=== PATIENT | male | born 1950 | race Caucasian/White ===

== ENCOUNTER 2016-08-24 22:46 | Emergency (ER) | payer OTHER, MEDICARE ==
[~2016-08-24] VITALS: Ht 188 cm; Wt 81.6 kg
--- NOTE | 2016-08-24 22:57 | ED GENERAL ADULT ---
History of Present Illness General Chief Complaint: Fall Stated Complaint: BIBA +ETOH FALL FROM STAIRS INTO PILE OF DIRT Source: patient, EMS Exam Limitations: confusion, poor historian, intoxication, physical impairment Vital Signs & Intake/Output Vital Signs & Intake/Output Vital Signs Date Time Temp Pulse Resp B/P Pulse O2 O2 Flow FiO2 Ox Delivery Rate 08/25 0020 77 20 109/66 97 Room Air 08/25 0014 95 Room Air 08/24 2311 97.1 86 18 136/76 95 Room Air ED Intake and Output 08/25 0000 08/24 1200 Intake Total Output Total Balance Patient 180 lb Weight Allergies Coded Allergies: NO KNOWN ALLERGIES (09/21/12) Reconcile Medications Aspirin (Ecotrin*) 81 MG TABLET.DR 1 TAB PO DAILY HEART HEALTH (Reported) Lisinopril 5 MG TABLET 1 TAB PO DAILY HEART HEALTH (Reported) Metoprolol Tartrate 25 MG TABLET 1 TAB PO BID HEART HEALTH (Reported) Simvastatin (Simvastatin*) 20 MG TABLET 1 TAB PO QPM HEART HEALTH (Reported) Tiotropium [place] (Spiriva) 18 MCG CAP.W.DEV 1 CAP INH DAILY COPD (Reported) Triage Note: BIBA FROM HOME +ETOH FELL OFF STEPS, ROLLED DOWN EMBANKMENT AND INTO THE STREET. PD WAS DRIVING BY AND SAW PT, ACTIVATED EMS. PT WAS REFUSING ALL CARE BUT HIGHLY INTOXICATED SO WAS BROUGHT TO ED. NOT ON PEER. UPON ARRIVAL PT ATTEMPTING TO REMOVE C-COLLAR. EMS UNABLE TO OBTAIN IV DUE TO UNCOOPERATION Triage Nurses Notes Reviewed? yes Onset: Abrupt Duration: hour(s): Timing: recent history HPI: 08/24/16 11 PM Is a 66-year-old male presents to the emergency department for alcohol intoxication. The patient apparently was seen walking down an embankment and he fell and rolled down a hill. Police were called and he was forced to come to the emergency department for evaluation. The patient is obviously intoxicated. He denies any headache chest pain abdominal pain or any complaints. On physical exam he does not have any cervical spine tenderness. No obvious evidence of trauma. He is acutely intoxicated, abdomen is soft and nontender The onset of the symptoms were abrupt, the duration was just this evening, the severity is significant, as he needed evaluation in the ED. (JONATAN OLIVAREZ DO) Past History Medical History Any Pertinent Medical History? see below for history History of MRSA: No History of VRE: No History of CDIFF: No Surgical History Surgical History: unobtainable Psychosocial History Who do you live with Spouse Services at Home None What is your primary language Dominican Family History Hx Contributory? No (JONATAN OLIVAREZ DO) Review of Systems Review of Systems Constitutional: Reports: no symptoms. EENTM: Reports: no symptoms. Respiratory: Reports: no symptoms. Cardiovascular: Reports: no symptoms. GI: Reports: no symptoms. Genitourinary: Reports: no symptoms. Musculoskeletal: Reports: no symptoms. Skin: Reports: no symptoms. Neurological/Psychological: Reports: see HPI. Hematologic/Endocrine: Reports: no symptoms. (JONATAN OLIVAREZ DO) Physical Exam Physical Exam General Appearance: alert, awake, anxious, moderate distress Head: atraumatic, normal appearance Eyes: Bilateral: normal appearance, PERRL, EOMI. Ears, Nose, Throat: normal ENT inspection Neck: normal inspection, supple, full range of motion, no midline tenderness Respiratory: normal breath sounds, chest non-tender, no respiratory distress Cardiovascular: regular rate/rhythm Peripheral Pulses: 4+ radial (R), 4+ radial (L) Gastrointestinal: non-tender Back: decreased range of motion Extremities: normal inspection, normal range of motion, no edema Neurologic/Psych: awake, alert, INTOXICATED Skin: intact, normal color, warm/dry Core Measures ACS in differential dx? No CVA/TIA Diagnosis: No Severe Sepsis Present: No Septic Shock Present: No (JONATAN OLIVAREZ DO) Progress Differential Diagnoses I considered the following diagnoses in my evaluation of the patient: [Alcohol intoxication, occult trauma, intracranial bleed, cervical spine fracture] Plan of Care: Orders Procedure Date/time Status ETHANOL 08/24 2256 Complete COMPREHENSIVE METABOLIC PANEL 08/24 2256 Complete CBC WITHOUT DIFFERENTIAL 08/24 2256 Complete Laboratory Tests 08/25/16 0005: Anion Gap 10, Estimated GFR > 60, BUN/Creatinine Ratio 17.8, Glucose 107 H, Calcium 9.7, Total Bilirubin 0.9, AST 39, ALT 50, Alkaline Phosphatase 50, Total Protein 7.1, Albumin 4.3, Globulin 2.8, Albumin/Globulin Ratio 1.5, CBC w Diff NO MAN DIFF REQ, RBC 4.22 L, MCV 96.3 H, MCH 33.1 H, RDW 12.3, MPV 7.2 L, Gran % 77.1 H, Lymphocytes % 13.5 L, Monocytes % 6.5, Eosinophils % 2.2, Basophils % 0.7, Absolute Granulocytes 11.3 H, Absolute Lymphocytes 2.0, Absolute Monocytes 0.9 H, Absolute Eosinophils 0.3, Absolute Basophils 0.1, PUBS MCHC 34.3, Serum Alcohol 212.0 Initial ED EKG: PENDING (JONATAN OLIVAREZ DO) Departure Departure Disposition: STILL A PATIENT Condition: Stable Clinical Impression Primary Impression: Subarachnoid hemorrhage Secondary Impressions: Alcohol intoxication Referrals: SHASTA JEFFREY MD (PCP/Family) Departure Forms: Customer Survey General Discharge Information Comments 08/25/16 Just before midnight I was informed by the radiologist his CT scan of the head showed traumatic subarachnoid hemorrhage. The patient was signed out to Dr. Mar at midnight. He is for transfer to the trauma center. CT of the cervical spine was negative for fracture as reported to me by the radiologist. PATIENT: MARC MALONE PRESENT AGE: 66 PATIENT ACCOUNT NO: [id number] : 50 LOCATION: [facility] ORDERING PHYSICIAN: JONATAN OLIVAREZ DO SERVICE DATE: 08/24/16 EXAM TYPE: CAT - CT CERV SPINE WO IV CONTRAST; CT HEAD WO IV CONTRAST EXAMINATION: CT HEAD AND CERVICAL SPINE. CLINICAL INFORMATION: Fall. Intoxicated. Evaluate for intracranial hemorrhage. COMPARISON: No relevant prior imaging available. TECHNIQUE: [employer] Sorter images were obtained. CT acquisition of the head and cervical spine was performed without intravenous administration of contrast. Data was reformatted into multiplanar images at the acquisition workstation. DLP: 889.44 mGy-cm. FINDINGS: Head: There is acute subarachnoid hemorrhage with a small volume of blood layering within the left sylvian fissure. This finding is best illustrated on axial image 18 of 56 series 2. There is no intracranial mass effect or midline shift. No abnormal extra axial collection. Overton-white matter differentiation is grossly preserved and there is no evidence of acute territorial infarct. There is focal swelling of the left parietal scalp. The underlying calvarium is intact. No acute skull base fracture. There is no mastoid or middle ear effusion. Mild/moderate paranasal sinus disease. Cervical spine: There is anatomic alignment and position of the vertebral bodies and posterior elements of the cervical spine in the sagittal dimension. Vertebral body heights are preserved. There is no evidence of acute fracture. No abnormal prevertebral soft tissue swelling. 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 There is also slight loss of intervertebral disc height with associated sclerotic degenerative endplate changes and disc ossified spurring at C4-C5, C5-C6, and C6-C7. Grossly there is no evidence of bony canal compromise. Uncovertebral joint hypertrophy and facet degenerative change causes varying degrees of neuroforaminal encroachment at the levels of C4-C5, C5-C6, and C6-C7. Soft tissues of the neck are grossly unremarkable. Lung apices are clear. IMPRESSION: Head: There is acute subarachnoid hemorrhage with a small volume of blood layering within the left sylvian fissure. There is focal swelling of the left parietal scalp. The underlying calvarium is intact. Cervical spine: No acute cervical spinal fracture. There is degenerative spondylosis at C4-C5, C5-C6, and C6-C7. Uncovertebral joint hypertrophy and facet degenerative change causes varying degrees of neuroforaminal encroachment at these 3 levels. Grossly no evidence of bony canal compromise. If there is a clinical concern for compressive myelopathy then a dedicated cervical spine MRI should be obtained. This critical result was discussed with Jonatan Olivarez at 08/24/2016 11:42 PM and it was ascertained that the content and urgency of the report was understood at the time of direct communication. DICTATED BY: ANA LUISA SALMON MD DATE/TIME DICTATED:08/24/162337 CERTIFIED NOVELL ADMINISTRATOR:FERNANDA DATE/TIME TRANSCRIBED:08/24/162337 CONFIDENTIAL, DO NOT COPY WITHOUT APPROPRIATE AUTHORIZATION. <Electronically signed in Other Vendor System> SIGNED BY: ANA LUISA SALMON MD 08/24 5440 (JONATAN OLIVAREZ DO) Departure Comments 08/25/16, 11:50pm ...I discussed Mr. Malone's condition with Dr. Rosenbaum ([facility] trauma attending) who accepts patient to [facility]. Pt signed consent form for transfer. (SOLEDAD GUTIERREZ,SIANN Redd) Critical Care Note Critical Care Note Critical Care Time: 30-74 min (JONATAN OLIVAREZ DO)
--- NOTE | 2016-08-24 23:50 | CT SCAN REPORT ---
EXAMINATION: CT HEAD AND CERVICAL SPINE. CLINICAL INFORMATION: Fall. Intoxicated. Evaluate for intracranial hemorrhage. COMPARISON: No relevant prior imaging available. TECHNIQUE: [employer] images were obtained. CT acquisition of the head and cervical spine was performed without intravenous administration of contrast. Data was reformatted into multiplanar images at the acquisition workstation. DLP: 889.44 mGy-cm. FINDINGS: Head: There is acute subarachnoid hemorrhage with a small volume of blood layering within the left sylvian fissure. This finding is best illustrated on axial image 18 of 56 series 2. There is no intracranial mass effect or midline shift. No abnormal extra axial collection. Overton-white matter differentiation is grossly preserved and there is no evidence of acute territorial infarct. There is focal swelling of the left parietal scalp. The underlying calvarium is intact. No acute skull base fracture. There is no mastoid or middle ear effusion. Mild/moderate paranasal sinus disease. Cervical spine: There is anatomic alignment and position of the vertebral bodies and posterior elements of the cervical spine in the sagittal dimension. Vertebral body heights are preserved. There is no evidence of acute fracture. No abnormal prevertebral soft tissue swelling. 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 There is also slight loss of intervertebral disc height with associated sclerotic degenerative endplate changes and disc ossified spurring at C4-C5, C5-C6, and C6-C7. Grossly there is no evidence of bony canal compromise. Uncovertebral joint hypertrophy and facet degenerative change causes varying degrees of neuroforaminal encroachment at the levels of C4-C5, C5-C6, and C6-C7. Soft tissues of the neck are grossly unremarkable. Lung apices are clear. IMPRESSION: Head: There is acute subarachnoid hemorrhage with a small volume of blood layering within the left sylvian fissure. There is focal swelling of the left parietal scalp. The underlying calvarium is intact. Cervical spine: No acute cervical spinal fracture. There is degenerative spondylosis at C4-C5, C5-C6, and C6-C7. Uncovertebral joint hypertrophy and facet degenerative change causes varying degrees of neuroforaminal encroachment at these 3 levels. Grossly no evidence of bony canal compromise. If there is a clinical concern for compressive myelopathy then a dedicated cervical spine MRI should be obtained. This critical result was discussed with Jonatan Villasenor at 08/24/2016 11:42 PM and it was ascertained that the content and urgency of the report was understood at the time of direct communication.
[2016-08-25 00:16] LABS: ABSOLUTE BASOPHIL COUNT 0.1 /CUMM (0.0-0.2); ABSOLUTE EOSINOPHIL COUNT 0.3 /CUMM (0.0-0.7); ABSOLUTE GRANULOCYTE CT 11.3 /CUMM (1.4-6.5); ABSOLUTE MONOCYTE COUNT 0.9 /CUMM (0.10-0.60); BASOPHIL % 0.7 % (0.0-2.0); EOSINOPHIL % 2.2 % (0-5); GRANULOCYTE % 77.1 % (42.2-75.2); HEMATOCRIT 40.6 % (42-52); MEAN CORPUSCULAR HGB 33.1 PG (27.0-31.0); MEAN CORPUSCULAR HGB CONC 34.3 G/DL (33.0-37.0); MEAN CORPUSCULAR VOLUME 96.3 FL (80.0-94.0); MEAN PLATELET VOLUME 7.2 FL (7.4-10.4); PLATELET COUNT 193 /CUMM (130-400); RBC DISTRIBUTION WIDTH 12.3 % (11.5-14.5); RED BLOOD CELL CT 4.22 /CUMM (4.70-6.10); WHITE BLOOD CELL COUNT 14.6 /CUMM (4.8-10.8)
[2016-08-25] MEDS ORDERED: SPIRIVA18 MCG INH (00:17)
[2016-08-25] MEDS ORDERED: ASPIRIN EC81 M1 PO (00:18)
[2016-08-25] MEDS ORDERED: LISINOPRIL5 M1 PO (00:18)
[2016-08-25] MEDS ORDERED: SIMVASTATIN20 M2 PO (00:18)
[2016-08-25] MEDS ORDERED: METOPROLOL TART25 M1 PO (00:18)
[2016-08-25 00:20] VITALS: BP 109/66
== END 2016-08-25 00:42 | disposition short-term general hospital (02) ==
LOC: ERH 22:46
PROVIDERS: Emergency Medicine
DX: S06.6X0A Traumatic subarachnoid hemorrhage without loss of consciousness, initial encounter (principal); F10.129 Alcohol abuse with intoxication, unspecified; W19.XXXA Unspecified fall, initial encounter; Y92.9 Unspecified place or not applicable; Y93.9 Activity, unspecified
CPT/HCPCS: G0480